=== PATIENT | female | born 1975 | race Caucasian/White ===

== ENCOUNTER 2016-10-30 10:04 | Emergency (ER) | payer OTHER ==
[~2016-10-30] VITALS: Ht 152.4 cm; Wt 99.0 kg
[~2016-10-30 10:04] MED LIST: ANTIVERT12.5 MG PO; BENADRYL25 MG PO; BENTYL10 MG PO; CALCIUM 500 WI1 EAC2 PO; CALCIUM500 M4 PO; CIPRO500 MG PO; CLEOCIN300 MG PO; CYMBALTA30 MG PO; DIAZEPAM5 MG PO; DILAUDID2 MG PO; DULCOLAX5 MG PO; DURAGESIC12 MCG TD; FLAGYL500 MG PO; FLEXERIL10 MG PO; FLONASE16 G1 BOTH NARES; FOLIC ACID1 MG PO; Flexeril PO; HUMIRA40 MG/0.1 SQ; INDERAL LA60 MG PO; K-DUR20 MEQ PO; KEFLEX500 MG PO; LIDOCAINE700 MG TD; METFORMIN HCL500 MG PO; METHOTREXATE2.5 MG PO; MILLIPRED5 MG PO; MOBIC15 MG PO; NORCO 5/3251 TABLET PO; PEPCID20 MG PO; PERCOCET 10/1 TABLET PO; PLAQUENIL200 MG PO; PREDNISONE10 MG PO; PREDNISONE20 MG PO; PRILOSEC20 MG PO; Phenergan PO; TRAMADOL HCL50 MG PO; Ultram ER 100 mg Tab PO; VENTOLIN HFA18 GM IH; VIBRAMYCIN100 MG PO; VITAMIN K100 MCG PO; ZESTORETIC,P1 TABLET PO; ZITHROMAX Z-PA250 MG PO; ZOFRAN ODT4 MG PO; ZOFRAN ODT8 MG PO; ZOFRAN4 MG PO; ZYRTEC10 M1 PO; Zestril,Prinivil PO; [UNRECOGNIZED DRUG - OTHER]
[2016-10-30] MEDS ORDERED: GRALISE300 MG PO (10:34)
[2016-10-30 11:21] LABS: ADD MIUA? NO; BILIRUBIN NEGATIVE; BLOOD NEGATIVE; COLOR YELLOW ((YELLOW)); GLUCOSE (STRIP) NEGATIVE; KETONES NEGATIVE; LEUKOCYTES NEGATIVE; NITRITE NEGATIVE; PROTEIN (STRIP) NEGATIVE; UCUL ADDED? NO; UROBILINOGEN 0.2 MG/DL (0.2-1.0)
[2016-10-30 13:44] VITALS: BP 137/75
== END 2016-10-30 14:18 | disposition home or self-care (01) ==
LOC: EME 10:04
PROVIDERS: Nurse Practitioner Family
DX: R32 Unspecified urinary incontinence (principal); I10 Essential (primary) hypertension; M54.5 Low back pain; F17.200 Nicotine dependence, unspecified, uncomplicated; Z98.890 Other specified postprocedural states; Z87.442 Personal history of urinary calculi; Z85.41 Personal history of malignant neoplasm of cervix uteri; Z88.6 Allergy status to analgesic agent; Z88.2 Allergy status to sulfonamides; Z91.041 Radiographic dye allergy status
CPT/HCPCS: 72158; 81003; 99281; 99285

== ENCOUNTER → 2017-03-24 | Outpatient (CLI) | payer OTHER ==
[~2017-03-24] MED LIST changes: +GRALISE300 MG PO
== END | disposition home or self-care (01) ==
LOC: CDC 10:51
DX: M25.532 Pain in left wrist (principal); M25.531 Pain in right wrist; G56.02 Carpal tunnel syndrome, left upper limb
CPT/HCPCS: 93000

== ENCOUNTER 2017-05-23 16:18 | Emergency (ER) | payer OTHER ==
[~2017-05-23] VITALS: Ht 152.4 cm; Wt 94.3 kg
[2017-05-23 17:04] LABS: HEMATOCRIT 42.8 % (36.0-46.0); MCH 30.7 PG (29.0-34.0); MCHC 34.1 G/DL (30.0-36.0); MCV 90.1 FL (83-99); MEAN PLAT.VOLUME 9.7 uM^3 (9.5-12.4); PLATELET COUNT 375 K/uL (156-360); RBC DIS.WIDTH-CV 12.3 % (11.8-14.6); RBC DIS.WIDTH-SD 40.1 % (39-53); RED BLOOD COUNT 4.75 M/uL (3.80-5.20); WHITE BLOOD COUNT 13.8 K/uL (4.1-10.2)
[2017-05-23 17:13] LABS: CHLORIDE 109 mEq/L (99-109); POTASSIUM 3.6 mEq/L (3.7-5.4); SODIUM 143 mEq/L (136-147)
[2017-05-23 17:15] LABS: GLUCOSE 73 mg/dL (70-99)
[2017-05-23 17:16] LABS: ANION GAP 10 MEQ/L (2-14)
[2017-05-23 17:18] LABS: ALKALINE PHOSPHATASE 69 IU/L (3-129); TOTAL BILIRUBIN 0.6 mg/dL (0.0-1.0)
[2017-05-23 17:19] LABS: GFR ESTIMATE (CALCULATED) > 59 mL/min/
[2017-05-23 17:20] LABS: UREA NITROGEN (BUN) 7 mg/dL (9-23)
[2017-05-23 17:28] LABS: QUANTITATIVE HCG < 4.0 MIU/ML
[2017-05-23 17:37] LABS: LIPASE 20 U/L (1.0-51.0)
[2017-05-23 18:36] LABS: ADD MIUA? YES; BILIRUBIN NEGATIVE; BLOOD NEGATIVE; COLOR YELLOW ((YELLOW)); GLUCOSE (STRIP) NEGATIVE; KETONES NEGATIVE; LEUKOCYTES NEGATIVE; NITRITE NEGATIVE; PROTEIN (STRIP) 30; SPECIFIC GRAVITY 1.015 (1.000-1.030); UROBILINOGEN 0.2 MG/DL (0.2-1.0)
[2017-05-23 18:53] LABS: BACTERIA RARE /HPF; EPITHELIAL CELLS RARE /HPF; MUCUS TRACE /LPF; UCUL ADDED? NO; WHITE BLOOD CELLS 0-5 /HPF (0-5)
[2017-05-23 19:42] VITALS: BP 160/87
== END 2017-05-23 19:42 | disposition left against medical advice (07) ==
LOC: EME 16:18
DX: R10.32 Left lower quadrant pain (principal); R11.2 Nausea with vomiting, unspecified; R31.9 Hematuria, unspecified; R30.0 Dysuria; Z87.442 Personal history of urinary calculi; K59.00 Constipation, unspecified; Z90.710 Acquired absence of both cervix and uterus; Z85.41 Personal history of malignant neoplasm of cervix uteri; Z90.49 Acquired absence of other specified parts of digestive tract; I10 Essential (primary) hypertension; J45.909 Unspecified asthma, uncomplicated; F17.200 Nicotine dependence, unspecified, uncomplicated
CPT/HCPCS: 74176; 80053; 81003; 83690; 84702; 85027; 99281; 99285; J1885; J2405; J7030